=== PATIENT | female | born 1975 | race Caucasian/White ===

== ENCOUNTER 2017-09-28 20:17 | Inpatient (IN) | payer OTHER ==
--- NOTE | 2017-09-28 20:45 | CPEKG ---
Heart Rate: 59 RR Interval: 1017 P-R Interval: 128 QRSD Interval: 80 QT Interval: 452 QTC Interval: 448 P [place]: 41 QRS [place]: 39 T Wave [place]: 35 EKG Severity - NORMAL ECG - EKG Impression: SINUS RHYTHM Electronically Signed By: Chelsea Conklin 28-Sep-2017 20:51:07
[2017-09-28 21:10] LABS: PLATELET COUNT 372 10^3/uL (150-400)
[2017-09-28] MEDS ORDERED: NS 1,000 ML IV ONE (22:06)
--- NOTE | 2017-09-28 22:06 | EDPHY ---
H & P Stated Complaint: EPIGASTRIC PAIN-RADIATING TO CHEST Time Seen by Provider: 09/28/17 20:33 HPI/ROS: HPI CHIEF COMPLAINT: Epigastric abdominal pain, sharp stabbing pain HISTORY OF PRESENT ILLNESS: This patient is a 41-year-old female she is otherwise healthy no significant medical history she presents emergency room with epigastric abdominal pain. She describes as sharp stabbing. She has noticed this being since May. It has been on and off however last 48 hr it has been constant not going away. She states is not worse when she eats. She denies chest pain or shortness of breath however the pain does go from her epigastric region slightly up into her chest. No arm pain, no numbness or tingling. No vomiting. No black tarry stools. Denies fever. States she has had this since May. It has become worse. Past Medical History: Denies medical history Past Surgical History: Abdominal hernia with mesh. Social History: Denies drugs alcohol tobacco products. Family History: Noncontributory ROS REVIEW OF SYSTEMS: A comprehensive 10 point review of systems is otherwise negative aside from elements mentioned in the history of present illness. Exam Constitutional appears well nontoxic no acute distress home triage nursing summary reviewed, vital signs reviewed, awake/alert. Eyes normal conjunctivae and sclera, EOMI, PERRLA. HENT normal inspection, atraumatic, moist mucus membranes, no epistaxis, neck supple/ no meningismus, no raccoon eyes. Respiratory clear to auscultation bilaterally, normal breath sounds, no respiratory distress, no wheezing. Cardiovascular rate normal, regular rhythm, no murmur, no edema, distal pulses normal. Gastrointestinal in any significant tenderness on exam, soft, non-tender, no rebound, no guarding, normal bowel sounds, no distension, no pulsatile mass. Genitourinary no CVA tenderness. Musculoskeletal no midline vertebral tenderness, full range of motion, no calf swelling, no tenderness of extremities, no meningismus, good pulses, neurovascularly intact. Skin pink, warm, & dry, no rash, skin atraumatic. Neurologic awake, alert and oriented x 3, AAOx3, moves all 4 extremities equally, motor intact, sensory intact, CN II-XII intact, normal cerebellar, normal vision, normal speech. Psychiatric normal mood/affect. Heme/Lymph/Immune no lymphadenopathy. Differential diagnosis includes but is not limited to and in no particular order : Bowel obstruction, appendicitis, gallbladder disease, diverticulitis, colitis , enteritis, perforated viscus, gastritis, GERD, esophagitis, urinary tract infection, pyelonephritis, kidney stones Medical Decision Making: Plan for this patient IV establishment, GI cocktail, check EKG, x-ray, ultrasound right upper quadrant, basic blood work. Re- evaluate. EKG interpretation by me on record in [facility] system. Impression time of EKG 2043, this is sinus rhythm rate of 59, no ST elevation, no ST depression, no T-wave abnormalities or prolonged intervals. Nonischemic unremarkable EKG. Re-evaluation: 2242: Patient's blood work noted reviewed. Shows lipase over 1999. Elevated LFTs and alk-phos. Will proceed with ultrasound. Patient need to be admitted the hospital for pancreatitis. 2255: Spoke with Dr. Denton who agrees to admit this patient for most likely gallstone pancreatitis. Updated the patient. 2354: Spoke with Dr. Bahena with surgery. Will plan on seeing patient in am. Source: Patient - Personal History LMP (Females 10-55): 15-21 Days Ago Current Tetanus Diphtheria and Acellular Pertussis (TDAP): Yes - Medical/Surgical History Hx Asthma: No Hx Chronic Respiratory Disease: No Hx Diabetes: No Hx Cardiac Disease: No Hx Renal Disease: No Hx Cirrhosis: No Hx Alcoholism: No Hx HIV/AIDS: No Hx Splenectomy or Spleen Trauma: No Other PMH: EPIGASTRIC HERNIA OPERATION 2006 - Social History Smoking Status: Never smoked Constitutional: Initial Vital Signs Temperature (C) 36.3 C 09/28/17 20:33 Heart Rate 71 09/28/17 20:33 Respiratory Rate 18 09/28/17 20:33 Blood Pressure 122/79 H 09/28/17 20:33 O2 Sat (%) 98 09/28/17 20:33 O2 Delivery Mode Room Air Allergies/Adverse Reactions: No Known Allergies Allergy (Unverified 09/28/17 20:32) Home Medications: Medication Instructions Recorded NK [No Known Home Meds] 09/28/17 Medical Decision Making - Diagnostics Imaging Results: Imaging Impressions Abdomen Ultrasound 09/28/17 22:12 Impression: 1. Cholelithiasis. One stone at the gallbladder neck appears nonmobile. 2. Borderline-enlarged common bile duct. No obstructing stone is identified, however, evaluation of the distal duct is limited on ultrasound. 3. Hepatic steatosis. Dr. Garduno discussed these findings by telephone with Adán Arteaga MD on 09/28/2017 at 2343 hours. - Data Points Laboratory Results: Laboratory Results 09/28/17 20:50 09/28/17 20:50 09/28/17 09/28/17 09/28/17 22:25 20:50 20:50 WBC RBC Hgb Hct MCV MCH MCHC RDW Plt Count MPV Neut % (Auto) Lymph % (Auto) Rhea % (Auto) Eos % (Auto) Baso % (Auto) Nucleat RBC Rel Count Absolute Neuts (auto) Absolute Lymphs (auto) Absolute Monos (auto) Absolute Eos (auto) Absolute Basos (auto) Absolute Nucleated RBC Immature Gran % Immature Gran # PT INR APTT VBG Lactic Acid 1.2 mmol/L mmol/L (0.7-2.1) Sodium Potassium Chloride Carbon Dioxide Anion Gap BUN Creatinine Estimated GFR Glucose Calcium Total Bilirubin 0.7 mg/dL mg/dL (0.1-1.4) Conjugated Bilirubin 0.3 mg/dL mg/dL (0.0-0.5) Unconjugated Bilirubin 0.4 mg/dL mg/dL (0.0-1.1) AST 535 IU/L H IU/L (14-46) ALT 320 IU/L H IU/L (9-52) Alkaline Phosphatase 211 IU/L H IU/L (38-126) Troponin I Total Protein 7.5 g/dL g/dL (6.3-8.2) Albumin 4.4 g/dL g/dL (3.5-5.0) Lipase 2695 IU/L H IU/L (23-300) Beta HCG, Qual NEGATIVE 09/28/17 09/28/17 09/28/17 20:50 20:50 20:50 WBC 10.19 10^3/uL H 10^3/uL (3.80-9.50) RBC 5.20 10^6/uL 10^6/uL (4.18-5.33) Hgb 13.4 g/dL g/dL (12.6-16.3) Hct 41.9 % % (38.0-47.0) MCV 80.6 fL L fL (81.5-99.8) MCH 25.8 pg L pg (27.9-34.1) MCHC 32.0 g/dL L g/dL (32.4-36.7) RDW 16.9 % H % (11.5-15.2) Plt Count 372 10^3/uL 10^3/uL (150-400) MPV 11.4 fL fL (8.7-11.7) Neut % (Auto) 82.1 % H % (39.3-74.2) Lymph % (Auto) 10.8 % L % (15.0-45.0) Rhea % (Auto) 5.4 % % (4.5-13.0) Eos % (Auto) 0.7 % % (0.6-7.6) Baso % (Auto) 0.5 % % (0.3-1.7) Nucleat RBC Rel Count 0.0 % % (0.0-0.2) Absolute Neuts (auto) 8.37 10^3/uL H 10^3/uL (1.70-6.50) Absolute Lymphs (auto) 1.10 10^3/uL 10^3/uL (1.00-3.00) Absolute Monos (auto) 0.55 10^3/uL 10^3/uL (0.30-0.80) Absolute Eos (auto) 0.07 10^3/uL 10^3/uL (0.03-0.40) Absolute Basos (auto) 0.05 10^3/uL 10^3/uL (0.02-0.10) Absolute Nucleated RBC 0.00 10^3/uL 10^3/uL (0-0.01) Immature Gran % 0.5 % % (0.0-1.1) Immature Gran # 0.05 10^3/uL 10^3/uL (0.00-0.10) PT 13.0 SEC SEC (12.0-15.0) INR 0.96 (0.83-1.16) APTT 23.4 SEC SEC (23.0-38.0) VBG Lactic Acid Sodium 138 mEq/L mEq/L (135-145) Potassium 3.8 mEq/L mEq/L (3.5-5.2) Chloride 103 mEq/L mEq/L (97-110) Carbon Dioxide 21 mEq/l L mEq/l (22-31) Anion Gap 14 mEq/L mEq/L (8-16) BUN 13 mg/dL mg/dL (7-23) Creatinine 0.7 mg/dL mg/dL (0.6-1.0) Estimated GFR > 60 Glucose 124 mg/dL H mg/dL (70-100) Calcium 9.1 mg/dL mg/dL (8.5-10.4) Total Bilirubin Conjugated Bilirubin Unconjugated Bilirubin AST ALT Alkaline Phosphatase Troponin I < 0.012 ng/mL ng/mL (0.000-0.034) Total Protein Albumin Lipase Beta HCG, Qual Medications Given: Discontinued Medications Al Hydroxide/Mg Hydroxide (Maalox Susp) 30 ml PO ONCE ONE Stop: 09/28/17 22:12 Last Admin: 09/28/17 22:22 Dose: 30 ml Hydromorphone HCl (Dilaudid) 1 mg IVP EDNOW ONE Stop: 09/28/17 22:45 Last Admin: 09/28/17 23:00 Dose: 1 mg Hyoscyamine Sulfate (Levsin, Hyomax-Sl) 0.25 mg PO ONCE ONE Stop: 09/28/17 22:12 Last Admin: 09/28/17 22:22 Dose: 0.25 mg Sodium Chloride (Ns) 1,000 mls @ 0 mls/hr IV EDNOW ONE; Wide Open PRN Reason: Protocol Stop: 09/28/17 22:07 Last Admin: 09/28/17 22:21 Dose: 1,000 mls Lidocaine (Lidocaine 2% Viscous) 15 ml PO ONCE ONE Stop: 09/28/17 22:12 Last Admin: 09/28/17 22:22 Dose: 15 ml Ondansetron HCl (Zofran) 4 mg IVP EDNOW ONE Stop: 09/28/17 22:45 Last Admin: 09/28/17 23:01 Dose: 4 mg Departure - Departure Disposition: [facility] Acute Clinical Impression: Pancreatitis Qualifiers: Chronicity: acute Pancreatitis type: other Acute pancreatitis complication: uninfected necrosis Qualified Code(s): K85.81 - Other acute pancreatitis with uninfected necrosis Condition: Fair
[2017-09-28] MEDS ORDERED: HYOSCYAMINE SULFATE 0.125 MG TAB PO ONE (22:11)
[2017-09-28] MEDS ORDERED: LIDOCAINE 2% VISCOUS 15 ML UDCUP PO ONE (22:11)
[2017-09-28] MEDS ORDERED: MAG HYDROX/AL HYDROX/SIMETH 30 ML UDCUP PO ONE (22:11)
[2017-09-28 22:32] LABS: INR 0.96 (0.83-1.16)
[2017-09-28] MEDS ORDERED: ONDANSETRON 4 MG/2 ML VIAL IVP ONE (22:44)
[2017-09-28] MEDS ORDERED: HYDROmorphONE/DILAUDID 2 MG/ML INJ IVP ONE (22:44)
[2017-09-28] MEDS ORDERED: ONDANSETRON 4 MG/2 ML VIAL IVP PRN (22:58)
[2017-09-28] MEDS ORDERED: HYDROmorphONE/DILAUDID 2 MG/ML INJ IVP PRN (22:58)
[2017-09-28] MEDS ORDERED: LORazepam 2 MG/ML INJ IVP PRN (22:58)
[2017-09-28] MEDS ORDERED: PROMETHAZINE HCL 25 MG/ML INJ IVP PRN (22:58)
[2017-09-29] MEDS: HYDROmorphONE/DILAUDID 2 MG/ML INJ IVP PRN ×4 (02:55→18:40)
--- NOTE | 2017-09-29 04:24 | PDGENHP ---
History and Physical - Chief Complaint Epigastric pain - History of Present Illness Source-patient provides history appears reliable. EMR was reviewed and case discussed with ED provider. HPI-this is a very pleasant 41-year-old female with no significant past medical history presents to the emergency department with complaints of severe epigastric abdominal pain. Patient reports that she has had intermittent episodes of sharp stabbing intermittent pains ongoing since May. Patient reports that she has had intermittent exacerbations not associated with meals in particular. Generally her pain would resolve after 4-5 hours and occur randomly. She denies any associated nausea vomiting or diarrhea. Patient states that her pain today was so severe that she was concerned it could be related to her heart so presented to the emergency department for further evaluation. Patient does report that she has been experiencing some flushing. No chills. History Information - Allergies/Home Medication List Allergies/Adverse Reactions: No Known Allergies Allergy (Unverified 09/28/17 20:32) Home Medications: NK [No Known Home Meds] 09/28/17 [Last Taken Unknown] I have personally reviewed and updated: family history, medical history, social history, surgical history - Past Medical History Additional medical history: Migraine headaches - Surgical History Additional surgical history: Hernia repair with mesh - Family History Additional family history: Cousins with gallbladder disease. Grandfather with pancreatic cancer otherwise family members are healthy. 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 She lives with roommates and feels safe there. Core-full. Patient desires her friend Rosalina to act as proxy if needed. Review of Systems Review of Systems: ROS: 10pt was reviewed & negative except for what was stated in HPI & below Physical Exam Physical Exam: Selected Entries 09/28/17 20:33 Blood Pressure Automatic Method Heart Rate 71 Respiratory 18 Rate O2 Sat (%) 98 Temperature (C) 36.3 C Blood Pressure 122/79 H Mean Arterial 93 Pressure (MAP) O2 Delivery Room Air Mode Temperature Oral Source Constitutional: no apparent distress, other (NAD. Patient is a pleasant adult female resting quietly in bed. She does appear little flushed but not acutely ill.) Eyes: PERRL, anicteric sclera, EOMI Ears, Nose, Mouth, Throat: no oral mucosal ulcers, dry mucous membranes, other ( No oropharyngeal erythema or exudates.) Cardiovascular: regular rate and rhythym, no murmur, rub, or gallop, No systolic murmur, No edema Peripheral Pulses: 2+: dorsalis-pedis (R), dorsalis-pedis (L) Respiratory: no respiratory distress, no rales or rhonchi, clear to auscultation Gastrointestinal: tenderness (Right upper quadrant and epigastric. Negative Ramsay's), other (Obese abdomen, hypoactive bowel sounds.), No soft, non-tender abdomen, No ramsay's sign, No distension Genitourinary: no bladder tenderness, No castaneda in urethra Skin: warm, normal color, other (Facial flushing.) Musculoskeletal: full muscle strength, No generalized weakness Neurologic: AAOx3, sensation intact bilaterally, other (Nonfocal exam), No weakness, No facial droop Psychiatric: interacting appropriately, not anxious, not encephalopathic, thought process linear Lab Data & Imaging Review 09/28/17 20:50 09/28/17 20:50 WBC 10.19 10^3/uL (3.80-9.50) H 09/28/17 20:50 RBC 5.20 10^6/uL (4.18-5.33) 09/28/17 20:50 Hgb 13.4 g/dL (12.6-16.3) 09/28/17 20:50 Hct 41.9 % (38.0-47.0) 09/28/17 20:50 MCV 80.6 fL (81.5-99.8) L 09/28/17 20:50 MCH 25.8 pg (27.9-34.1) L 09/28/17 20:50 MCHC 32.0 g/dL (32.4-36.7) L 09/28/17 20:50 RDW 16.9 % (11.5-15.2) H 09/28/17 20:50 Plt Count 372 10^3/uL (150-400) 09/28/17 20:50 MPV 11.4 fL (8.7-11.7) 09/28/17 20:50 Neut % (Auto) 82.1 % (39.3-74.2) H 09/28/17 20:50 Lymph % (Auto) 10.8 % (15.0-45.0) L 09/28/17 20:50 [place] % (Auto) 5.4 % (4.5-13.0) 09/28/17 20:50 Eos % (Auto) 0.7 % (0.6-7.6) 09/28/17 20:50 Baso % (Auto) 0.5 % (0.3-1.7) 09/28/17 20:50 Nucleat RBC Rel Count 0.0 % (0.0-0.2) 09/28/17 20:50 Absolute Neuts (auto) 8.37 10^3/uL (1.70-6.50) H 09/28/17 20:50 Absolute Lymphs (auto) 1.10 10^3/uL (1.00-3.00) 09/28/17 20:50 Absolute Monos (auto) 0.55 10^3/uL (0.30-0.80) 09/28/17 20:50 Absolute Eos (auto) 0.07 10^3/uL (0.03-0.40) 09/28/17 20:50 Absolute Basos (auto) 0.05 10^3/uL (0.02-0.10) 09/28/17 20:50 Absolute Nucleated RBC 0.00 10^3/uL (0-0.01) 09/28/17 20:50 Immature Gran % 0.5 % (0.0-1.1) 09/28/17 20:50 Immature Gran # 0.05 10^3/uL (0.00-0.10) 09/28/17 20:50 PT 13.0 SEC (12.0-15.0) 09/28/17 20:50 INR 0.96 (0.83-1.16) 09/28/17 20:50 APTT 23.4 SEC (23.0-38.0) 09/28/17 20:50 VBG Lactic Acid 1.2 mmol/L (0.7-2.1) 09/28/17 22:25 Sodium 138 mEq/L (135-145) 09/28/17 20:50 Potassium 3.8 mEq/L (3.5-5.2) 09/28/17 20:50 Chloride 103 mEq/L (97-110) 09/28/17 20:50 Carbon Dioxide 21 mEq/l (22-31) L 09/28/17 20:50 Anion Gap 14 mEq/L (8-16) 09/28/17 20:50 BUN 13 mg/dL (7-23) 09/28/17 20:50 Creatinine 0.7 mg/dL (0.6-1.0) 09/28/17 20:50 Estimated GFR > 60 09/28/17 20:50 Glucose 124 mg/dL (70-100) H 09/28/17 20:50 Calcium 9.1 mg/dL (8.5-10.4) 09/28/17 20:50 Total Bilirubin 0.7 mg/dL (0.1-1.4) 09/28/17 20:50 Conjugated Bilirubin 0.3 mg/dL (0.0-0.5) 09/28/17 20:50 Unconjugated Bilirubin 0.4 mg/dL (0.0-1.1) 09/28/17 20:50 AST 535 IU/L (14-46) H 09/28/17 20:50 ALT 320 IU/L (9-52) H 09/28/17 20:50 Alkaline Phosphatase 211 IU/L (38-126) H 09/28/17 20:50 Troponin I < 0.012 ng/mL (0.000-0.034) 09/28/17 20:50 Total Protein 7.5 g/dL (6.3-8.2) 09/28/17 20:50 Albumin 4.4 g/dL (3.5-5.0) 09/28/17 20:50 Lipase 2695 IU/L (23-300) H 09/28/17 20:50 Beta HCG, Qual NEGATIVE 09/28/17 20:50 Urine Color YELLOW 09/29/17 03:00 Urine Appearance HAZY 09/29/17 03:00 Urine pH 7.0 (5.0-7.5) 09/29/17 03:00 Ur Specific [place] 1.023 (1.002-1.030) 09/29/17 03:00 Urine Protein NEGATIVE (NEGATIVE) 09/29/17 03:00 Urine Ketones 2+ (NEGATIVE) H 09/29/17 03:00 Urine Blood NEGATIVE (NEGATIVE) 09/29/17 03:00 Urine Nitrate NEGATIVE (NEGATIVE) 09/29/17 03:00 Urine Bilirubin NEGATIVE (NEGATIVE) 09/29/17 03:00 Urine Urobilinogen NEGATIVE EU (0.2-1.0) 09/29/17 03:00 Ur Leukocyte Esterase NEGATIVE (NEGATIVE) 09/29/17 03:00 Urine Glucose NEGATIVE (NEGATIVE) 09/29/17 03:00 Imaging Review: Right upper quadrant ultrasound, 09/28/2017 History: Right upper quadrant abdominal pain Comparison: None available Technique: Transverse and longitudinal images of the right upper abdomen were obtained. Findings: Liver: Size: 14.9 cm in the right midclavicular line, normal Appearance: Increased echogenicity, smooth contour Mass: No focal masses Gallbladder: Stones/Sludge: Shadowing stones, one of which at the neck is nonmobile. Wall: 0.3 cm Appearance: No pericholecystic fluid or hydrops. Sonographic Ramsay's Sign: Negative Bile Ducts: Intrahepatic ducts: No dilatation Extrahepatic ducts: Common bile duct measures 0.7 cm, borderline-enlarged for age. Pancreas: Visualized portions of the pancreatic head, neck and proximal body are normal. Right Kidney: Size: 11.9 x 4.5 x 5 cm Echogenicity: Normal Parenchymal thickness: Normal Collecting system: No hydronephrosis Stones: None Cyst/mass: None Vessels: Aorta: Visualized portions are normal. Main portal vein: Visualized portions are normal with hepatopetal flow. Free Fluid: No ascites or pleural effusion. Impression: 1. Cholelithiasis. One stone at the gallbladder neck appears nonmobile. 2. Borderline-enlarged common bile duct. No obstructing stone is identified, however, evaluation of the distal duct is limited on ultrasound. 3. Hepatic steatosis. Dr. Garduno discussed these findings by telephone with Adán Arteaga MD on 09/28/2017 at 2343 hours. Visualized and Interpreted Chest x-ray results: Yes Chest X-Ray results: no infiltrate, normal Visualized and Interpreted imaging results: Yes EKG Interpretation: Positive for: normal sinsus rhythm EKG additional interpertation: NSR 60, no acute ST changes. QTc 448. Assessment & Plan Assessment: Acute gallstone Pancreatitis - patient has been made NPO. Will plan to monitor home lipase in the morning. Continue with IV fluid hydration bowel rest. Patient with some minimal dilation of common bile duct but no evidence of stone obstructing and bilirubin is also within normal limits. Patient does however have a non mobile stone located at the gallbladder neck. Cholelithiasis - general surgery consultation from the emergency department for evaluation of pop possible cholecystectomy. Patient will remain NPO while pancreatitis remains active. Abdominal pain - Dilaudid and Ativan will be available p.r.n.. Patient remain NPO. She does not have any active nausea vomiting. Transaminitis will plan to monitor a.m. LFTs. No evidence currently of common bile duct obstruction on ultrasound. Patient with some mild dilation of the common bile duct but no evidence of obstructive process. FEN - IV fluid hydration. Monitoring electrolytes and replace if needed. Patient will be NPO for bowel rest. PPX-holding anticoagulation pending general surgery evaluation in the morning. SCDs. Core-full Disposition-patient has been admitted to inpatient status on the medical floor. In setting of her acute gallstone pancreatitis and cholelithiasis anticipate greater than 2 midnight stay.
[2017-09-29 04:56] LABS: PLATELET COUNT 310 10^3/uL (150-400)
[2017-09-29 05:04] LABS: INR 1.06 (0.83-1.16)
[2017-09-29] MEDS: NS 1,000 ML IV SCH ×2 (07:34→14:57)
--- NOTE | 2017-09-29 09:04 | HOSPPROG ---
Hospitalist Progress Note Assessment/Plan: # gallstone pancreatitis - cont supportive care, IVF, pain control, NPO - MRCP today - will need cholecystectomy, possibly ERCP pending results # elevated transaminases - possibly d/t passed stone - MRCP # anemia - outpatient f/u Subjective: still having abd pain this am Objective: Vital Signs Temp Pulse Resp BP Pulse Ox 36.7 C 107 H 18 111/79 92 09/29/17 08:11 09/29/17 08:11 09/29/17 08:11 09/29/17 08:11 09/29/17 08:11 Laboratory Results 09/29/17 04:34 09/29/17 04:34 09/28/17 09/29/17 09/30/17 05:59 05:59 05:59 Intake Total 1200 850 Output Total 0 Balance 1200 850 PT 14.0 SEC (12.0-15.0) 09/29/17 04:34 INR 1.06 (0.83-1.16) 09/29/17 04:[address] Bahena US reviewed ICD10 Worksheet Patient Problems: Problems Problem Status Onset Pancreatitis Acute
[2017-09-29] MEDS: ACETAMINOPHEN 500 MG TAB PO SCH ×2 (09:08→20:49)
--- NOTE | 2017-09-29 09:09 | PDMN ---
Medical Necessity Medical necessity: M250 pancreatitis: 2 days: abd pain with serum Lipase > 3 X limit ( 2695) , with cholelithiasis, borderline enlarged common bile duct with stone located in gallbladder neck. hepatic stenosis, pt will be NPO, with IV fluids, IV pain meds, surgical consult pending, anticipate > 2 midnights for ongoing monitoring, eval and tx.
--- NOTE | 2017-09-29 09:37 | GCON ---
[f rep st] CONSULTATION REASON FOR CONSULTATION: Gallstone pancreatitis with cholelithiasis. 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 This has been intermittent and stabbing since onset in May. She has intermittent exacerbations that are not always associated with meals. The pain often resolves after 4-5 hours. She came to the emergency room. An ultrasound of her abdomen showed several gallstones in the gallbladder with 1 nonmobile stone in the gallbladder neck, fluid around the gallbladder but a negative Ramsay sign. Her common duct was dilated. Her lipase was 2500. She was admitted for supportive care. Her lipase has returned to the normal range this morning. An MRCP is planned to help with the staging of procedures. ALLERGIES: She has no known drug allergies. MEDICATIONS: She is not taking any medications. PAST SURGICAL HISTORY: Her only surgery has been repair of an umbilical hernia with mesh. REVIEW OF SYSTEMS: Otherwise unhelpful. Note is made she is a nonsmoker. She has a red head and does have a higher pain tolerance as one would expect. PHYSICAL EXAMINATION: GENERAL: She is awake, alert, and personable. ABDOMEN: Shows hypoactive bowel sounds. Her abdomen is slightly distended. She definitely does not have a Ramsay sign at this point. RECOMMENDATIONS: I will recommend that we pursue an MRCP this morning with consideration for a laparoscopic cholecystectomy later today or tomorrow. She understands the planned course. /[id number]/MODL MTDD
[2017-09-29] MEDS: KETOROLAC 30 MG/1 ML SDV IVP SCH ×3 (11:14→23:11)
[2017-09-29] MEDS ORDERED: GLUCAGON HCL 1 MG VIAL ONE (16:06)
[2017-09-29] MEDS ORDERED: IOTHALAMATE MEG (CONRAY) 50 ML VIAL IV ONE (16:07)
[2017-09-29] MEDS ORDERED: INDOMETHACIN 50 MG SUPP PR ONE (16:14)
--- NOTE | 2017-09-29 16:14 | ASMTCMCOM ---
CM Note CM Note Notes: Patient admitted for gallstone pancreatitis. She will need a cholecystectomy and possible ERCP. She is normally independent, active, and employed. I do not anticipate any discharge needs. CM available if any arise. Date Signed: 09/29/2017 04:13 PM Electronically Signed By:Maria C Vale RN
--- NOTE | 2017-09-29 16:38 | GCON ---
[f rep st] CONSULTATION DATE OF CONSULTATION: 09/29/2017 CHIEF COMPLAINT: Common duct stone. HISTORY OF PRESENT ILLNESS: I am asked to see this patient in consultation by Dr. Hassan for chief complaint of common duct stone. 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 She has had intermittent pain since May. The emergency room evaluation, found ev idence of choledocholithiasis. Ultrasound showed gallstones, slightly dilated duct. MRCP was performe d showing a 4 mm stone within the common duct, with slightly dilated duct and the suggestion of hilda cystitis. The patient's pain is now well controlled on medicine. She has had no nausea and vomiting. She denies GERD or dysphagia. She has had no surgery on her esophagus or stomach. She has had a prior umbilical hernia. ERCP is requested prior to cholecystectomy. ALLERGIES: No known allergies. CURRENT MEDICATIONS: Patient takes occasional NSAIDs but no prescription medications. PAST MEDICAL HISTORY: Notable for umbilical hernia. SOCIAL HISTORY: She denies alcohol use. FAMILY HISTORY: Notable for pancreatic cancer in a grandfather. REVIEW OF SYSTEMS: I performed a complete review of systems which is negative except for the pertine nt positive negatives noted above in HPI. PHYSICAL EXAM: VITAL SIGNS: She is afebrile at 36.7, BP 100/69, pulse 81. CONSTITUTIONAL: Alert and oriented. No apparent distress. EYES: No scleral icterus. ENT: No oral lesions. CARDIOVASCULAR: Regul ar rate and rhythm. CHEST: Clear to auscultation. ABDOMEN: Soft, nontender. No rebound. NEUROLOGIC: N onfocal. SKIN: No lesions. LABORATORY DATA: White count is 10, hematocrit 35.6 with hemoglobin of 11.6, platelets are 310. Coag s are normal with an INR 1.06. LFTs are trending down. Bilirubin is normal at 0.5. AST has come from 535 to 196, ALT from 320 to 218, alkaline phosphatase from 211 to 143. Lipase was elevated on admissi on at 2695, today is 250. Ultrasound shows gallstones within the gallbladder, borderline dilated common bile duct. MRCP done th is morning shows a 4 mm stone, nonobstructing in the common duct. No impacted ampulla. Common duct is mildly dilated. There is cholelithiasis and features suggesting acute cholecystitis. ASSESSMENT: 1. Elevated LFTs. 2. Gallstones, probably cholecystitis. 3. Common duct stone in the setting of elevated LFTs and clinically mild pancreatitis. RECOMMENDATIONS: The patient will need cholecystectomy. Agree with ERCP prior to cholecystectomy to clear common duct stone, which we will do with anesthesia. Continue n.p.o. and antibiotics. We will follow. Thanks for the consultation. /[id number]/MODL
[2017-09-29] MEDS ORDERED: PROPOFOL/EMULSION 500 MG/50 ML BOTTLE IV ONE (17:05)
[2017-09-29] MEDS ORDERED: fentaNYL 100 MCG/2 ML INJ ONE (17:06)
[2017-09-29] MEDS ORDERED: MIDAZOLAM 2 MG/2 ML VIAL IVP ONE (17:08)
--- NOTE | 2017-09-29 17:54 | GIREPORT ---
[facility] Surgical Services - Endoscopy Department Patient Name: Kassandra Maya Procedure Date: 09/29/2017 4:20 PM Patient Type: Inpatient Attending MD/ ER Physician: Jose Deng MD Procedure: ERCP Indications: Abdominal pain of suspected biliary origin, Evaluation and possible treatment of bile duct stone(s), Suspected bile duct stone(s), Elevated liver enzymes Providers: Jose Deng MD Medicines: General Anesthesia Complications: No immediate complications. Description of Procedure: After obtaining informed consent, the scope was passed under direct vis ion. Throughout the procedure, the patient's blood pressure, pulse, and oxyg en saturations were monitored continuously. The was introduced through the mouth, and advanced to the duodenum and used for direct visualization o f the bile duct. The ERCP was accomplished without difficulty. The patient tolerated the procedure well. Findings: The esophagus was successfully intubated under direct vision. The scope was advanced to a normal major papilla in the descending duodenum without detailed examination of the pharynx, larynx and associated structures, and upper GI tract. The upper GI tract was grossly normal. A long 0.035 inc h Soft Jagwire was passed into the biliary tree. The short-nosed traction sphincterotome was passed over the guidewire and the bile duct was then deeply cannulated. Contrast was injected. I personally interpreted the bile duct images. Contrast extended to the main bile duct. Contrast extended to the bifurcation. The lower third of the main bile duct contained one st one, which was 6 mm in diameter. The main bile duct was diffusely dilated. T he largest diameter was 8 mm. A 7 mm biliary sphincterotomy was made with a traction (standard) sphincterotome using ERBE electrocautery. There was no post-sphincterotomy bleeding. The lower third of the main bile duct contained one stone, which was 6 mm in diameter. The biliary tree was s wept with a 12 mm balloon starting at the bifurcation. A single stone with s tone fragments were removed. No stones remained. Estimated Blood Loss: Estimated blood loss: none. Post Op Diagnosis: - The entire main bile duct was dilated. - Choledocholithiasis was found. Complete removal was accomplished by biliary sphincterotomy and balloon extraction. - A biliary sphincterotomy was performed. - The biliary tree was swept. Recommendation: - Clear liquid diet. - Observe patient's clinical course. - Refer to a surgeon for cholecystectomy. - Thank you for allowing me to participate in the care of your patient. Attending Participation: I personally performed the entire procedure. Jose Deng MD Jose Deng MD 09/29/2017 5:54:19 PM This report has been signed electronicallyStevford Deng MD Number of Addenda: 0 Note Initiated On: 09/29/2017 4:20 PM [email or web address]
[2017-09-30] MEDS: HYDROmorphONE/DILAUDID 2 MG/ML INJ IVP PRN ×5 (00:40→20:04)
[2017-09-30] MEDS: NS 1,000 ML IV SCH (00:41)
[2017-09-30] MEDS: ACETAMINOPHEN 500 MG TAB PO SCH ×3 (04:28→17:06)
[2017-09-30] MEDS: KETOROLAC 30 MG/1 ML SDV IVP SCH ×2 (04:32→14:21)
[2017-09-30 04:56] LABS: PLATELET COUNT 301 10^3/uL (150-400)
--- NOTE | 2017-09-30 09:59 | HOSPPROG ---
Hospitalist Progress Note Assessment/Plan: # gallstone pancreatitis - cont supportive care, IVF, pain control, NPO - cholecystectomy today by Dr Massey # choledocholithiasis - s/p ERCP with stone extraction yesterday - ancef started with mild GB edema and fluids # anemia - outpatient f/u Subjective: s/p ERCP yesterday; had heartburn with ice chips; pain better today Objective: Vital Signs Temp Pulse Resp BP Pulse Ox 36.8 C 95 16 102/70 96 09/30/17 07:44 09/30/17 07:44 09/30/17 07:44 09/30/17 07:44 09/30/17 07:44 Laboratory Results 09/30/17 04:14 09/30/17 04:14 09/29/17 09/30/17 10/01/17 05:59 05:59 06:59 Intake Total 1200 4905 Output Total 0 1900 Balance 1200 3005 PT 14.0 SEC (12.0-15.0) 09/29/17 04:34 INR 1.06 (0.83-1.16) 09/29/17 04:34 - Physical Exam Constitutional: no apparent distress Cardiovascular: regular rate and rhythym, no murmur, rub, or gallop Respiratory: no respiratory distress, no rales or rhonchi Gastrointestinal: soft, non-tender abdomen, no palpable masses ICD10 Worksheet Patient Problems: Problems Problem Status Onset Pancreatitis Acute
--- NOTE | 2017-09-30 10:51 | SOAPPROG ---
SOAP Progress Note Assessment/Plan: Assessment: s/p ERCP with sphincterotomy and stone extraction Denies abdominal pain. Had a little reflux with water last night. Plan: Cholecystectomy later today Will sign off, please call with questions. . 09/30/17 10:49 Subjective: CC: Epigastric pain and RUQ pain. Abnormal LFT's No pain this morning. Some heartburn after water last night. Objective: Vital Signs Temp Pulse Resp BP Pulse Ox 36.8 C 95 16 102/70 96 09/30/17 07:44 09/30/17 07:44 09/30/17 07:44 09/30/17 07:44 09/30/17 07:44 Laboratory Results 09/30/17 04:14 09/30/17 04:14 09/29/17 09/30/17 10/01/17 05:59 05:59 06:59 Intake Total 1200 4905 Output Total 0 1900 Balance 1200 3005 PT 14.0 SEC (12.0-15.0) 09/29/17 04:34 INR 1.06 (0.83-1.16) 09/29/17 04:34 Generic Name Dose Route Start Last Admin Trade Name Jesusq PRN Reason Stop Dose Admin Acetaminophen 1,000 mg 09/29/17 08:45 09/30/17 04:28 Tylenol PO 03/28/18 08:44 1,000 mg Q8H SADIE Administration Hydromorphone HCl 0.5 - 1 mg 09/29/17 02:37 09/30/17 09:40 Dilaudid IVP 10/08/17 22:57 1 mg Q2HRS PRN Administration Pain, Severe Unable to Take PO Sodium Chloride 1,000 mls @ 150 mls/hr 09/28/17 23:00 09/30/17 00:41 Ns IV 03/27/18 22:59 1,000 mls CONT SADIE Administration Cefazolin Sodium/Dextrose 50 mls @ 200 mls/hr 09/29/17 14:00 09/30/17 04:31 Ancef 1 Gm (Premix) IV 10/29/17 13:59 50 mls Q8HRS SADIE Administration Protocol Lorazepam 0.5 - 1 mg 09/28/17 22:58 09/29/17 02:23 Ativan Injection IVP 03/27/18 22:57 0.5 mg Q8HRS PRN Administration Anxiety, Unable to Take PO Ondansetron HCl 4 mg 09/28/17 22:58 Zofran IVP 03/27/18 22:57 Q4HRS PRN Nausea/Vomiting, Can't Take PO Pantoprazole Sodium 40 mg 09/30/17 10:00 Protonix IVP 03/29/18 09:59 DAILY SADIE Promethazine HCl 6.25 - 12.5 mg 09/28/17 22:58 Phenergan IVP 03/27/18 22:57 Q6HRS PRN Nausea/Vomiting, Use 2nd Discontinued Medications Generic Name Dose Route Start Last Admin Trade Name Freq PRN Reason Stop Dose Admin Al Hydroxide/Mg Hydroxide 30 ml 09/28/17 22:11 09/28/17 22:22 Maalox Susp PO 09/28/17 22:12 30 ml ONCE ONE Administration Fentanyl Confirm 09/29/17 17:06 Sublimaze Administered 09/29/17 17:07 Dose 100 mcg .ROUTE .STK-MED ONE Glucagon Confirm 09/29/17 16:06 Glucagon Administered 09/29/17 16:07 Dose 1 mg .ROUTE .STK-MED ONE Hydromorphone HCl 1 mg 09/28/17 22:44 09/28/17 23:00 Dilaudid IVP 09/28/17 22:45 1 mg EDNOW ONE Administration Hydromorphone HCl 0.5 - 1 mg 09/28/17 22:58 09/29/17 00:50 Dilaudid IVP 10/08/17 22:57 1 mg Q3HRS PRN Administration Pain, Severe Unable to Take PO Hyoscyamine Sulfate 0.25 mg 09/28/17 22:11 09/28/17 22:22 Levsin, Hyomax-Sl PO 09/28/17 22:12 0.25 mg ONCE ONE Administration Sodium Chloride 1,000 mls @ 0 mls/hr 09/28/17 22:06 09/28/17 22:21 Ns IV 09/28/17 22:07 1,000 mls EDNOW ONE Administration Protocol Wide Open Indomethacin Confirm 09/29/17 16:14 Indocin Rectal Administered 09/29/17 16:15 Dose 100 mg NH .STK-MED ONE Iothalamate Meglumine Confirm 09/29/17 16:07 Conray Administered 09/29/17 16:08 Dose 50 ml IV .STK-MED ONE Ketorolac Tromethamine 30 mg 09/29/17 12:00 09/30/17 04:32 Toradol IVP 10/04/17 11:59 30 mg Q6 SADIE Administration Lidocaine 15 ml 09/28/17 22:11 09/28/17 22:22 Lidocaine 2% Viscous PO 09/28/17 22:12 15 ml ONCE ONE Administration Midazolam HCl 2 mg 09/29/17 17:08 09/29/17 20:50 Versed IVP 09/29/17 17:09 Not Given ONCALL ONE Ondansetron HCl 4 mg 09/28/17 22:44 09/28/17 23:01 Zofran IVP 09/28/17 22:45 4 mg EDNOW ONE Administration Propofol Confirm 09/29/17 17:05 Diprivan 10 Mg/Ml (Premix) Administered 09/29/17 17:06 Dose 500 mg IV .STK-MED ONE Physical Exam - Physical Exam General Appearance: alert, no apparent distress Respiratory: lungs clear, normal breath sounds Cardiac/Chest: regular rate, rhythm Abdomen: normal bowel sounds, non-tender, soft Skin: normal color, warm/dry ICD10 Worksheet Patient Problems: Problems Problem Status Onset Pancreatitis Acute
[2017-09-30] MEDS: PANTOPRAZOLE SODIUM 40 MG VIAL IVP SCH (11:07)
--- NOTE | 2017-09-30 11:09 | SOAPPROG ---
JOANIE Progress Note Assessment/Plan: Assessment: 41-YEAR-OLD FEMALE WITH CHOLECYSTITIS AND GALLSTONE PANCREATITIS/MARKEDLY IMPROVED AFTER ERCP WITH ESSENTIALLY NO ABDOMINAL PAIN LFTS IMPROVED ALTHOUGH HER LIPASE IS ELEVATED AGAIN AFTER THE ERCP CHEST CLEAR/ABDOMEN SOFT NONTENDER WITH POSITIVE BOWEL SOUNDS/HEENT NONICTERIC Plan: PROCEED WITH LAP CHOLY TODAY/RISKS AND OPTIONS FULLY DISCUSSED AND SHE WISHED TO PROCEED 09/30/17 11:07 Objective: Vital Signs Temp Pulse Resp BP Pulse Ox 36.8 C 95 16 102/70 96 09/30/17 07:44 09/30/17 07:44 09/30/17 07:44 09/30/17 07:44 09/30/17 07:44 Laboratory Results 09/30/17 04:14 09/30/17 04:14 09/29/17 09/30/17 10/01/17 05:59 05:59 06:59 Intake Total 1200 4905 Output Total 0 1900 Balance 1200 3005 PT 14.0 SEC (12.0-15.0) 09/29/17 04:34 INR 1.06 (0.83-1.16) 09/29/17 04:34 ICD10 Worksheet Patient Problems: Problems Problem Status Onset Pancreatitis Acute
[2017-09-30] MEDS ORDERED: cefOXitin SODIUM 2 GM in STERILE WATER INJ 21 ML IV ONE (11:45)
[2017-09-30] MEDS ORDERED: LR 1,000 ML IV ONE (12:21)
[2017-09-30] MEDS ORDERED: BUPIVACAINE 0.5% 10 ML SDV ONE (12:42)
[2017-09-30] MEDS ORDERED: HEPARIN 1000 UNIT/1 ML MDV ONE (12:43)
[2017-09-30] MEDS ORDERED: ceFAZolin 1 GM/5 ML SYR ONE (12:44)
[2017-09-30] MEDS ORDERED: MIDAZOLAM 2 MG/2 ML VIAL IVP ONE (12:44)
--- NOTE | 2017-09-30 12:44 | PDANEPAE ---
ANE History of Present Illness cholelithiasis s/f lap hilda ANE Past Medical History - Pulmonary History Hx Oxygen in Use at Home: No Hx Sleep Apnea: No Sleep Apnea Screening Result - Last Documented: Negative - Endocrine History Hx Diabetes: No - Chronic Pain History Chronic Pain: Yes ANE Review of Systems Review of Systems: - Exercise capacity Exercise capacity: >=4 METS ANE Patient History - Allergies Allergies/Adverse Reactions: No Known Allergies Allergy (Unverified 09/28/17 20:32) - Home Medications Home medications: home medication list seen and reviewed Home Medications: Acetaminophen/ASA/Caffeine [Excedrin Tablet (*)] 1 each PO DAILY PRN 09/29/17 [ Last Taken Unknown] Ibuprofen [Motrin (*)] 200 mg PO DAILY PRN 09/29/17 [Last Taken Unknown] - NPO status NPO Since - Liquids (Date): 09/30/17 NPO Since - Liquids (Time): 00:00 NPO Since - Solids (Date): 09/30/17 NPO Since - Solids (Time): 00:00 - Smoking Hx Smoking Status: Never smoked - Alcohol Use Alcohol Use: None ANE Labs/Vital Signs - Labs Result Diagrams: 09/30/17 04:14 09/30/17 04:14 - Vital Signs Blood Pressure: 102/70 Heart Rate: 80 Respiratory Rate: 16 O2 Sat (%): 95 Height: 160.02 cm Weight: 72.745 kg ANE Physical Exam - Airway Neck exam: FROM Mallampati Score: Class 1 Mouth exam: normal dental/mouth exam - Pulmonary Pulmonary: no respiratory distress - Cardiovascular Cardiovascular: regular rate and rhythym - ASA Status ASA Status: I ANE Anesthesia Plan Anesthesia Plan: general endotracheal anesthesia
[2017-09-30] MEDS ORDERED: MIDAZOLAM 2 MG/2 ML VIAL ONE (12:48)
[2017-09-30] MEDS ORDERED: fentaNYL 100 MCG/2 ML INJ ONE (12:55)
[2017-09-30] MEDS ORDERED: PROPOFOL/EMULSION 500 MG/50 ML BOTTLE IV ONE (12:55)
[2017-09-30] MEDS ORDERED: LIDOCAINE 2% 100 MG/5 ML SYR ONE (12:58)
[2017-09-30] MEDS ORDERED: DEXAMETHASONE 4 MG/ML VIAL ONE ×2 (12:58)
[2017-09-30] MEDS ORDERED: ROCURONIUM 50 MG/5 ML VIAL ONE (12:58)
[2017-09-30] MEDS ORDERED: ONDANSETRON 4 MG/2 ML VIAL ONE (12:58)
[2017-09-30] MEDS ORDERED: LIDOCAINE HCL 160 MG/4 ML LTA KIT TP ONE (13:02)
[2017-09-30] MEDS ORDERED: PHENYLEPHRINE HCL 100 MCG/ML SYR ONE (13:14)
[2017-09-30] MEDS ORDERED: fentaNYL 100 MCG/2 ML INJ IVP PRN (13:44)
[2017-09-30] MEDS ORDERED: OXYCODONE/APAP 5/325 TAB PO PRN (13:44)
[2017-09-30] MEDS ORDERED: HYDROCODONE/APAP 5/325 TAB PO PRN (13:44)
[2017-09-30] MEDS ORDERED: LR 500 ML IV PRN (13:44)
[2017-09-30] MEDS ORDERED: ACETAMINOPHEN 500 MG TAB PO PRN (13:44)
[2017-09-30] MEDS ORDERED: LABETALOL HCL 5 MG/ML 20 ML MDV IVP PRN (13:44)
[2017-09-30] MEDS ORDERED: METOCLOPRAMIDE 10 MG/2 ML VIAL IVP PRN (13:44)
[2017-09-30] MEDS ORDERED: NALOXONE HCL 0.4 MG/ML INJ IVP PRN (13:44)
[2017-09-30] MEDS ORDERED: PHENYLEPHRINE HCL 100 MCG/ML SYR IVP PRN (13:44)
[2017-09-30] MEDS ORDERED: ALBUTEROL 3 ML DEYVIAL IH PRN (13:44)
[2017-09-30] MEDS ORDERED: MEPERIDINE 25 MG/ML SYR IVP PRN (13:44)
[2017-09-30] MEDS ORDERED: DEXAMETHASONE 4 MG/ML VIAL IVP PRN (13:44)
[2017-09-30] MEDS ORDERED: ONDANSETRON 4 MG/2 ML VIAL IVP PRN (13:44)
[2017-09-30] MEDS ORDERED: PROMETHAZINE HCL 25 MG/ML INJ IVP PRN (13:44)
[2017-09-30] MEDS ORDERED: NEOSTIGMINE METHYLSULFATE 3 MG/3 ML SYR ONE (13:55)
[2017-09-30] MEDS ORDERED: GLYCOPYRROLATE 0.2 MG/1 ML VIAL ONE ×2 (13:55)
--- NOTE | 2017-09-30 14:09 | POSTOPPROG ---
Post Op Note Date of Operation: 09/30/17 Surgeon: Pal Massey Anesthesiologist: MAURICE Anesthesia: GET(General Endotracheal) Pre-op Diagnosis: ACUTE CHOLECYSTITIS Post-op Diagnosis: SAME Indication: PAIN Procedure: LAP DANIEL Findings: INFLAMMED GB WITH IMPACTED LARGE STONES Inf/Abcess present in the surg proc area at time of surgery?: Yes Depth: Organ Space EBL: Minimal Complications: 0 Specimen(s): GALLBLADDER AND CULTURE
[2017-09-30] MEDS ORDERED: HYDROmorphONE/DILAUDID 1 MG/ML INJ IVP PRN (14:11)
[2017-09-30] MEDS ORDERED: D5W 1/2 NS W/ 20 KCl/L 1,000 ML IV SCH (14:15)
[2017-09-30] MEDS ORDERED: KETOROLAC 30 MG/1 ML SDV ONE (14:15)
--- NOTE | 2017-09-30 14:27 | POSTANESTH ---
Post Anesthetic Evaluation Cardiovascular Status: Normal, Stable Respiratory Status: Tx Decrease in SpO2 Level of Consciousness/Mental Status: Can Participate in Eval, Mildly Sleepy, Arousable Pain Control: Adequate, Prn Tx Ordered Nausea/Vomiting Control: Adequate, Prn Tx Ordered Complications Possibly Related to Anesthesia: None Noted
[2017-09-30] MEDS: OXYCODONE/APAP 5/325 TAB PO PRN (17:05)
[2017-09-30] MEDS: cefOXitin SODIUM 1 GM in STERILE WATER INJ 10.5 ML IV SCH (20:04)
[2017-09-30] MEDS: KETOROLAC 15 MG/1 ML SDV IVP SCH (20:05)
[2017-10-01] MEDS: ACETAMINOPHEN 500 MG TAB PO SCH ×2 (01:59→09:04)
[2017-10-01] MEDS: cefOXitin SODIUM 1 GM in STERILE WATER INJ 10.5 ML IV SCH ×2 (03:13→06:48)
[2017-10-01 04:40] LABS: PLATELET COUNT 318 10^3/uL (150-400)
[2017-10-01] MEDS: HYDROmorphONE/DILAUDID 2 MG/ML INJ IVP PRN ×2 (05:06)
[2017-10-01] MEDS: KETOROLAC 15 MG/1 ML SDV IVP SCH ×3 (06:48→12:31)
[2017-10-01] MEDS: PANTOPRAZOLE SODIUM 40 MG VIAL IVP SCH (09:03)
[2017-10-01] MEDS: OXYCODONE/APAP 5/325 TAB PO PRN ×2 (09:12→12:03)
--- NOTE | 2017-10-01 10:50 | SOAPPROG ---
SOAP Progress Note Assessment/Plan: Assessment: 41-YEAR-OLD FEMALE WITH CHOLECYSTITIS AND GALLSTONE PANCREATITIS/MARKEDLY IMPROVED AFTER ERCP WITH ESSENTIALLY NO ABDOMINAL PAIN LFTS IMPROVED ALTHOUGH HER LIPASE IS ELEVATED AGAIN AFTER THE ERCP CHEST CLEAR/ABDOMEN SOFT NONTENDER WITH POSITIVE BOWEL SOUNDS/HEENT NONICTERIC Plan: PROCEED WITH [facility] TODAY/RISKS AND OPTIONS FULLY DISCUSSED AND SHE WISHED TO PROCEED 09/30/17 11:07 10/01/17 10:49 DOING WELL/ TOLERATING PO/ [place], ABDSOFT, +FLATUS/ LBS IMPROVE/ HOME TODAY Objective: Vital Signs Temp Pulse Resp BP Pulse Ox 36.6 C 76 15 101/74 98 10/01/17 07:59 10/01/17 07:59 10/01/17 07:59 10/01/17 07:59 10/01/17 07:59 Microbiology 09/30/17 14:00 Gram Stain - Final Gallbladder - Eswab Laboratory Results 10/01/17 04:16 10/01/17 04:16 09/30/17 10/01/17 10/02/17 04:59 05:59 05:59 Intake Total Output Total Balance PT 14.0 SEC (12.0-15.0) 09/29/17 04:34 INR 1.06 (0.83-1.16) 09/29/17 04:34 ICD10 Worksheet Patient Problems: Problems Problem Status Onset Pancreatitis Acute
[2017-10-01 11:23] VITALS: BP 97/63; PULSE 106; RESP 18; TEMP 97.7; O2SAT 94
--- NOTE | 2017-10-01 11:29 | GDS ---
[f rep st] DISCHARGE SUMMARY DIAGNOSES: 1. Acute cholecystitis. 2. Acute gallstone pancreatitis. 3. Choledocholithiasis. 4. Anemia. HOSPITAL COURSE: A 41-year-old female, presented with abdominal pain. She had an elevated lipase co nsistent with pancreatitis. Ultrasound showed cholelithiasis. MRCP showed choledocholithiasis. She underwent an ERCP with stone removal. She subsequently underwent a cholecystectomy. She has tolera meaghan these procedures well. She is eating and ambulating, safe to be discharged home. She will be di scharged on additional 5 days of Augmentin given the choledocholithiasis. She has been given a short course of Percocet. She also had some heartburn. I have given her a short course of Protonix. She will follow up with Dr. Massey in 1 week. She is comfortable with this plan. I discussed this with Dr. Massey on the day of discharge. BILLING: I spent more than 30 minutes on the day of discharge coordinating care. /[id number]/MODL
== END 2017-10-01 12:38 | disposition home or self-care (01) | DRG 417 ==
LOC: EEVIPCON 20:17 → F1N 09-29 00:30
PROVIDERS: ADMIT Family Medicine; ATTEND Student in an Organized Health Care Education/Training Program
PROC: 0FC98ZZ Extirpation of Matter from Common Bile Duct, Via Natural or Artificial Opening Endoscopic (ICD-10-PCS; 2017-09-29)
PROC: BF10YZZ Fluoroscopy of Bile Ducts using Other Contrast (ICD-10-PCS; 2017-09-29)
PROC: 0FT44ZZ Resection of Gallbladder, Percutaneous Endoscopic Approach (ICD-10-PCS; principal; 2017-09-30 12:30)
DX: K80.62 Calculus of gallbladder and bile duct with acute cholecystitis without obstruction (principal); K85.80 Other acute pancreatitis without necrosis or infection; D64.9 Anemia, unspecified; K76.0 Fatty (change of) liver, not elsewhere classified; R74.0 Nonspecific elevation of levels of transaminase and lactic acid dehydrogenase [LDH]; R94.5 Abnormal results of liver function studies
CPT/HCPCS: J0690; J0694; J1100; J1170; J1610; J1885; J2001; J2060; J2250; J2370; J2405; J2704; J2710; J3010; Q9961